=== PATIENT | male | born 1970 | race Caucasian/White ===

== ENCOUNTER → 2017-01-17 | Outpatient (CLI) | payer BC ==
[~2017-01-17] MED LIST: IBUP-103 PO; LANS30CA63 PO; LSN5 PO; LVQ750 PO; PRVHFAIN INH
== END | disposition home or self-care (01) ==
LOC: C.RDSM 14:00
PROVIDERS: ATTEND Orthopaedic Surgery
DX: M25.571 Pain in right ankle and joints of right foot (principal)

== ENCOUNTER → 2017-04-28 | Day surgery (SDC) | payer OTHER, BC ==
[2017-04-01 11:37] VITALS: Ht 177.8 cm; Wt 102.3 kg
[~2017-04-28] VITALS: Ht 177.8 cm; Wt 102.3 kg
[~2017-04-28] MED LIST changes: +ASPI81TA28 PO; +ATROPINE SULFATE 0.1 MG/ML 5ML SYR IV PRN; +CEFAZOLIN 2000MG IV PUSH 15 ML IV SCH; +DEXAMETHASONE SOD INJ 4 MG/ML VIAL ONE; +EpHEDrine SULFATE INJ 50 MG/ML AMP IV PRN; +EpINEphrine INJ 1MG/ML AMP 1 MG/ML AMP ONE; +FENTANYL CITRATE INJ 50 MCG/1 ML 2 ML VIAL ONE; +HYDROmorphone INJ 1 MG/ML SYR IV PRN; +LACTATED RINGER'S 1000ML 1,000 ML IV SCH; +LIDOCAINE HCL 2% 2 ML VIAL (20MG/ML) ONE; -LVQ750 PO; +METHYLPREDNISOLONE ACETATE 80 MG/ML VIAL ONE; +MIDAZOLAM HCL 1 MG/ML 2ML VIAL ONE; +OMEG10007 PO; +ONDANSETRON INJ 2 MG/ML 2 ML VIAL IV PRN; +ONDANSETRON INJ 2 MG/ML 2 ML VIAL ONE; +OXYCODONE/ACETAMINOPHEN 5-325 TAB PO PRN; +PROMETHAZINE HCL INJ 12.5 MG in SODIUM CHLORIDE 0.9% 50ML 50 ML IV PRN; +PROPOFOL IV EMULSION 10 MG/ML 20 ML VIAL IV ONE; +ROPIVACAINE 0.5% 5 MG/ML 30 ML VIAL ONE; +SODIUM CHLORIDE 0.9% 1000ML 1,000 ML IV SCH
--- NOTE | 2017-04-28 07:03 | History & Physical Bridge - [place] ---
H&P Re-Evaluation Bridge Note: I have examined the patient, reviewed the History & Physical and in the interval since the performance of the History & Physical I have noted the following changes of clinical significance: No changes noted
--- NOTE | 2017-04-28 08:40 | [facility] Post Operative Brief Note ---
Immediate Operative Summary Operative Date Apr 28, 2017. Pre-Operative Diagnosis Right Ankle Synovitis, tibial and talar osteophytes Post-Operative Diagnosis Same Procedure(s) Performed Right Ankle Arthroscopic Synovectomy, excision of tibial and talar osteophytes Surgeon Dr. Brown Ballast Cleaning Machine Operator Surgeon(s) Dr. Wojciech Dudley, Fellow; Keturah Nelson PA-C Estimated Blood Loss 3 cc Findings Consistent with Post-Op Diagnosis Fluids (cc crystalloids) 1000 Specimens None Drains None Anesthesia Type General Complication(s) none Disposition Accompanied Pt To Recovery: no Disposition: Recovery Room / PACU
--- NOTE | 2017-04-28 08:49 | [facility] Operative Report ---
Operative Report Operative Date Apr 28, 2017. Pre-Operative Diagnosis Right Ankle Synovitis, tibial and talar osteophytes Post-Operative Diagnosis Same Procedure(s) Performed Right Ankle Arthroscopic Synovectomy, excision of tibial and talar osteophytes Surgeon Dr. Brown Health Care Analyst Surgeon(s) Dr. Wojciech Dudley, Fellow; Keturah Nelson PA-C Estimated Blood Loss 3 cc Fluids 1000 Specimens None Drains None Anesthesia Type General Complication(s) none Disposition no Recovery Room / PACU I attest to the content of the Intraoperative Record and any orders documented therein. Any exceptions are noted below.
--- NOTE | 2017-04-28 08:55 | Discharge Instructions ---
Discharge Instructions Date of Service Apr 28, 2017. Admission Reason for Admission: Right Ankle Synovitis Discharge Discharge Diagnosis / Problem: Right ankle synovitis Discharge Goals Goal(s): Decrease discomfort, Improve function, Increase independence Activity Recommendations Activity Limitations: as noted below Lifting Limitations: none Exercise/Sports Limitations: until after follow-up appointment May Resume Sexual Activity: when tolerated Shower/Bathe: tomorrow, keep incision dry Driving or Machine Use: Not until cleared by health care marketing specialist Weightbearing Status: Right non-weightbearing (NWB today. Tomorrow may begin WBAT with boot and crutches.) . Instructions / Follow-Up Instructions / Follow-Up Post-operative Instructions Dear Patient and Family/Friends, Before you are discharged from the hospital, it is important to know what to expect when you get home after surgery. To that end, we have created this sheet of discharge instructions which covers many commonly asked questions. Make sure you go through this sheet in its entirety with your nurse before you are discharged. Please note that we will go over the specifics of your surgery and recovery when you return for your first post-operative visit. Sincerely, Dr. Brown Pain Expect to be in a fair amount of pain after surgery. Remember, our goal is not to eliminate your pain, but to make it tolerable. It is a good idea to stay ahead of your pain by taking the medications you were prescribed once you get home. Typically, the pain starts improving 3-7 days after surgery. You should start weaning off the narcotic pain medication (oxycodone, hydrocodone, hydromorphone, morphine) as soon as your pain improves. Please call our office if your pain is not adequately controlled. Ice Ice your operative site at least 5 times a day for 15-30 minutes at a time. Make sure you have a thin cloth between the ice or cooling unit and your skin to prevent reardon bite. This is especially important if you received a nerve block. Continue icing your operative site for the first 5-7 days after surgery , then as needed. Diet/Nausea/Vomiting Start by drinking clear liquids and eating crackers. If you can tolerate this, then you may resume your normal diet. If you feel nauseated or vomit, take Zofran/ondansetron (if prescribed). Please call our office if you have intractable nausea or vomiting, or, if after hours, you may go to the Emergency Room for help. Constipation Constipation is a common side effect of narcotic pain medication. If you have not had a bowel movement within 2 days after surgery, we recommend purchasing an over the counter laxative such as Milk of Magnesia, Dulcolax, or Miralax from a local pharmacy, and taking it as instructed. Call our clinic if any questions. Slings and Braces If you were placed in a sling or brace, it must be worn at all times, including sleep. You may remove your sling or brace for physical therapy, home exercises , and showering. The length of time you will be in your brace and range of motion restrictions depends on what surgery you had; these details will be reviewed at your first post-operative appointment. Nerve block The anesthesia team sometimes places a nerve block to help with post-operative pain control. This results in significant numbness and inability to move the extremity. The nerve block usually wears off in 8-12 hours, but sometimes can last up to 24 hours. Please call our office if you are still unable to move your extremity after 24 hours, unless you received a pain pump to take home. Nerve blocks typically wear off quickly, so start taking pain medication as soon as you start feeling soreness near your surgical site. Weight bearing and Range of Motion. Do not bear any weight through your operative extremity immediately after surgery. If you had upper extremity surgery, do not lift anything with that arm. If you are in a knee brace, keep it locked in place until your follow-up. We will discuss your weight bearing, range of motion, and lifting restrictions in detail at your first post-operative appointment. Continuous Passive Motion (CPM) Machine If you were prescribed a CPM machine, it will start after your first post- operative appointment, at which time we will give you instructions on the range of motion settings and duration of treatment Physical therapy You will be given a prescription for physical therapy or occupational therapy at your first post-operative appointment. Typically, patients start therapy within 1 week of surgery Wound care and showering We will inspect your wound at your first post-operative visit, and may do a dressing change at that time. Most patients will be in a water-proof dressing that is removed 14 days after surgery. It is normal to see some dried blood on the dressing. Do not remove your dressing, paper strips or sutures yourself unless you are given permission. Showering is allowed the day after surgery. Do not scrub or remove any dressings. The wound should not be submerged underwater (i.e. in a bathtub or pool) until 4 weeks after surgery PRISCA stockings If you were given white stockings, these are to be worn at all times except to shower (on both legs) for the first 2 weeks after surgery. Driving You may not drive while taking narcotic pain medication or while in a cast, splint, sling or brace. You, the patient, need to make the final determination about when you are safe to drive, however, the earliest you may consider driving after surgery is below: Hand/Wrist/Elbow Surgery: 3 days Shoulder Surgery: 2 weeks Hip,/Knee/Ankle Surgery: 4 weeks Fracture repair: 6 weeks Return to Work Your return to work depends on what surgery was done and what type of work you do. Please bring any paperwork your employer needs completed to your first post -operative visit. Also, bring a description of your job duties, as this helps us to understand what risks you may face at work. Travel Avoid long distance travel (greater than 1 hour) in airplanes and cars for the first 6 weeks after surgery. If you must travel, you need to have a Doppler ultrasound done before you travel to rule out a blood clot in your legs. Follow-up You should have a follow-up appointment already scheduled 1-2 days after surgery. If not, please contact our office to make this appointment before you leave the hospital. When to call the office It is normal to have swelling and bruising in the limb that was operated on. This will improve with time. It is also normal to have fevers for the first 2 days after surgery. Reasons you should call your doctor include: Uncontrolled pain; Nausea, vomiting, or constipation that does not improve with medication; Fevers over 101.5, chills, sweats; Drainage or bleeding from the wound; Foul odor; Spreading areas of redness; Any other concerns Current Hospital Diet Patient's current hospital diet: Discharge Diet Recommended Diet: Regular Diet Procedures Procedures Performed: Right Ankle Arthroscopic Synovectomy, excision of tibial and talar osteophytes Pending Studies Studies pending at discharge: no Medical Emergencies . Who to Call and When: Medical Emergencies: If at any time you feel your situation is an emergency, please call 911 immediately. . Non-Emergent Contact Non-Emergency issues call your: Primary Care Provider Call Non-Emergent contact if: you have a fever, temperature is above 101.5, your pain is not controlled, your pain is worsening, wound has increased drainage, you have any medication questions . "Provider Documentation" section prepared by Tony Nelson. . VTE Core Measure Inpt VTE Proph given/why not?: Other Anticoagulation (EC aspirin 81 mg), August Zhou [place] Drug Monitoring Program Search Results: patient reviewed within database, no issues identified, see additional documentation
[2017-04-28] MEDS: FENTANYL CITRATE INJ 50 MCG/1 ML 2 ML VIAL IV PRN ×4 (09:03→09:23)
--- NOTE | 2017-04-28 09:40 | Anesthesia Progress Nt - [facility] ---
Anesthesia Post Op Note Date & Time Apr 28, 2017 at 09:39 Vital Signs Pain Intensity: 5 Vital Signs Past 12 Hours Date Time Temp Pulse Resp B/P (MAP) Pulse Ox O2 Delivery O2 Flow Rate FiO2 04/28/17 09:31 36.4 73 19 04/28/17 09:31 73 19 111/86 92 04/28/17 09:26 74 11 04/28/17 09:26 73 11 156/117 97 04/28/17 09:21 75 22 04/28/17 09:21 76 22 135/95 97 04/28/17 09:16 73 13 138/89 98 04/28/17 09:16 73 13 04/28/17 09:11 64 3 04/28/17 09:11 63 3 125/87 97 04/28/17 09:06 66 3 04/28/17 09:06 65 3 124/93 98 04/28/17 09:02 135/90 04/28/17 09:01 70 6 97 04/28/17 09:01 69 6 04/28/17 08:57 113/78 04/28/17 08:56 72 18 97 04/28/17 08:56 74 18 04/28/17 08:52 158/108 04/28/17 08:51 74 15 92 04/28/17 08:51 75 15 04/28/17 08:48 132/101 04/28/17 08:47 37.7 85 16 132/101 95 Mask 6 04/28/17 06:30 36.8 74 16 141/109 (120) 94 Room Air Notes Mental Status: alert / awake / arousable, participated in evaluation Pt Amnestic to Procedure: Yes Nausea / Vomiting: adequately controlled Pain: adequately controlled Airway Patency, RR, SpO2: stable & adequate BP & HR: stable & adequate Hydration State: stable & adequate Anesthetic Complications: no major complications apparent
--- NOTE | 2017-04-28 10:10 | OPERATIVE REPORT ---
DATE OF OPERATION: 04/28/2017 PREOPERATIVE DIAGNOSES: Right ankle synovitis, tibial and talar osteophytes. Findings are consistent with anterior ankle impingement. POSTOPERATIVE DIAGNOSES: Same. OPERATIONS PERFORMED: Right ankle arthroscopic synovectomy and excision of tibial and talar osteophytes. SURGEON: Dr. Tremayne Brown. SECURITY FIELD SUPERVISOR: Jay Dudley; Sheldon Nelson. ESTIMATED BLOOD LOSS: 3 mL. IV FLUIDS: 1000 mL crystalloids. SPECIMENS: None. DRAINS: None. COMPLICATIONS: None. INDICATIONS: Mr. Wright is a 47-year-old male who sustained a work-related injury where he sprained his ankle several months ago. We have rehabilitated him from his ankle sprain to the point where he has normal stability exam. However, he has developed synovitis in his ankle joint as well as osteophytes on the distal tibia and the talar neck. He has pain with dorsiflexion of his ankle. We tried a corticosteroid injection into the ankle joint which relieved his pain, but only transiently. After several months of physical therapy which failed to relieve his symptoms, surgery is indicated to perform a synovectomy and remove the osteophytes. A long discussion about the risks and benefits of surgery was undertaken. We talked about alternatives to surgery and expected outcomes. After reviewing all these, he elected to proceed with surgery. All questions were answered. Informed consent was signed. OPERATIVE FINDINGS: 1. The articular surfaces of the tibial plafond and the body of the talus were intact. 2. The lateral aspect of the ankle showed a Quincy's ligament, extensive synovitis involving the lateral gutter and anterolateral ankle as well as a spur off the distal tibia. 3. The medial gutter showed a partial tear of the deep deltoid ligament, extensive synovitis involving the medial gutter, and osteophytes off the distal tibia and talar neck. The areas of synovitis were resected. Quincy's ligament was removed to a point where it could no longer impinge. The tibial and talar osteophytes were removed medially and laterally. The ankle could be brought through a full range of motion including maximum dorsiflexion with no impingement at the conclusion of the case. I injected 8 mL of 0.5% ropivacaine and 2 mL of Depo-Medrol 40 mg per mL at the conclusion of the case. DESCRIPTION OF THE OPERATION: The patient was identified in the preoperative holding area where surgical site was marked. He was brought back to main operating room, where he was placed in the operating room table and general anesthesia was administered. A bump was placed underneath the ipsilateral hip. The leg avalos was placed which was well padded on all bony prominences. He was prepped and draped in the normal sterile fashion. Prior to incision, a multidisciplinary timeout was called. All in the room were in agreement. I began by insufflating the ankle with 20 mL of normal saline. Anteromedial portal was created along the medial border of the tibial tendon. A 4.0 scope was introduced in the ankle joint. A lateral working portal was created. The diagnostic arthroscopy was then performed revealing the above findings. Once a diagnostic arthroscopy was complete, a torpedo shaver was used to perform a synovectomy. Quincy's ligament was excised from the lateral aspect of the ankle. The distal tibial osteophyte was exposed with electrocautery. A 4.0 round bur was used to resect the distal tibial osteophyte. Meticulous hemostasis was ensured with the cautery. Next, the camera was switched to the anterolateral portal and through the medial portal. The shaver was again used to debride the synovitis in the medial gutter. The partial tearing of the deep deltoid ligament was excised. The osteophytes were identified with electrocautery dissected out. These were then removed with a 4.0 round bur. Final arthroscopic images were obtained. A spinal needle was placed through a percutaneous incision into the ankle joint. The instruments were then removed. The portals were closed with nylon sutures. We then injected 8 mL of 0.5% ropivacaine and 2 mL of Depo-Medrol 40 mg per mL into the ankle joint for postoperative pain control and to reduce postoperative scarring. POSTOPERATIVE COURSE: The patient will be discharged home from the recovery room. He will return to clinic tomorrow and physical therapy will go over his arthroscopic images as well as his restrictions. He will be weightbearing as tolerated in a Cam boot and start early active range of motion. Aspirin for DVT prophylaxis. I attest to the content of the Intraoperative Record and any orders documented therein. Any exceptions are noted below. ANA
[2017-04-28 10:25] VITALS: BP 118/79; PULSE 74; O2SAT 94
== END | disposition home or self-care (01) ==
LOC: X.SURG 06:21
PROVIDERS: ATTEND Orthopaedic Surgery
DX: M65.871 Other synovitis and tenosynovitis, right ankle and foot (principal); M25.771 Osteophyte, right ankle; I10 Essential (primary) hypertension; E11.9 Type 2 diabetes mellitus without complications; K21.9 Gastro-esophageal reflux disease without esophagitis; E78.5 Hyperlipidemia, unspecified; E66.9 Obesity, unspecified; Z68.32 Body mass index [BMI] 32.0-32.9, adult; Z79.899 Other long term (current) drug therapy; Z79.82 Long term (current) use of aspirin; Z87.891 Personal history of nicotine dependence; Z98.890 Other specified postprocedural states

== ENCOUNTER → 2017-06-10 | Outpatient (CLI) | payer OTHER, BC ==
[~2017-06-10] MED LIST changes: -ATROPINE SULFATE 0.1 MG/ML 5ML SYR IV PRN; -CEFAZOLIN 2000MG IV PUSH 15 ML IV SCH; -DEXAMETHASONE SOD INJ 4 MG/ML VIAL ONE; -EpHEDrine SULFATE INJ 50 MG/ML AMP IV PRN; -EpINEphrine INJ 1MG/ML AMP 1 MG/ML AMP ONE; -FENTANYL CITRATE INJ 50 MCG/1 ML 2 ML VIAL ONE; -HYDROmorphone INJ 1 MG/ML SYR IV PRN; -LACTATED RINGER'S 1000ML 1,000 ML IV SCH; -LIDOCAINE HCL 2% 2 ML VIAL (20MG/ML) ONE; -METHYLPREDNISOLONE ACETATE 80 MG/ML VIAL ONE; -MIDAZOLAM HCL 1 MG/ML 2ML VIAL ONE; -ONDANSETRON INJ 2 MG/ML 2 ML VIAL IV PRN; -ONDANSETRON INJ 2 MG/ML 2 ML VIAL ONE; -OXYCODONE/ACETAMINOPHEN 5-325 TAB PO PRN; -PROMETHAZINE HCL INJ 12.5 MG in SODIUM CHLORIDE 0.9% 50ML 50 ML IV PRN; -PROPOFOL IV EMULSION 10 MG/ML 20 ML VIAL IV ONE; -ROPIVACAINE 0.5% 5 MG/ML 30 ML VIAL ONE; -SODIUM CHLORIDE 0.9% 1000ML 1,000 ML IV SCH
== END | disposition home or self-care (01) ==
LOC: C.RDSM 18:18
PROVIDERS: ATTEND Orthopaedic Surgery
DX: Z98.890 Other specified postprocedural states (principal)